=== PATIENT | male | born 1970 | race Caucasian/White ===

== ENCOUNTER 2023-01-23 08:20 | Outpatient (CLI) | payer BC, SELFPAY | END 2023-01-23 08:21 | disposition home or self-care (01) | PROVIDERS: PCP Internal Medicine; Visit Provider Internal Medicine | DX: Z00.00 Encounter for general adult medical examination without abnormal findings (principal); F10.10 Alcohol abuse, uncomplicated | CPT/HCPCS: 84450; 84460 ==

== ENCOUNTER 2024-02-18 08:45 | Outpatient (RCR) | payer BC, SELFPAY | END 2024-06-17 23:59 | disposition home or self-care (01) | PROVIDERS: PCP Internal Medicine; Visit Provider Family Medicine | DX: G56.22 Lesion of ulnar nerve, left upper limb (principal); M25.511 Pain in right shoulder; G89.29 Other chronic pain; Z74.09 Other reduced mobility; R29.898 Other symptoms and signs involving the musculoskeletal system; Z51.89 Encounter for other specified aftercare | CPT/HCPCS: 97110; 97161 ==

== ENCOUNTER 2024-03-22 08:59 | Outpatient (CLI) | payer BC, SELFPAY ==
--- OUTSIDE RECORDS SUMMARY | 2024-03-22 09:03 | XMS_ITS | Clinical Summary ---
Author Name Unknown Organization [facility] Address [place], [place] [address] Care Team Providers Care Service Sprinkler Helper Name Role Phone Pcp, No Primary Care Provider Unavailabl e Allergies No known active allergies Medications Medication Sig Dispensed Refills Start Date End Date Status celecoxib (CELEBREX) 200 mg capsuleIndications:U lnar neuropathy of left upper extremity Take 1 capsule by mouth 2 times daily with meals. 60 capsule 2 08/03/2018 Active gabapentin (NEURONTIN) 300 mg capsuleIndications:N euritis of left ulnar nerve Take 1 Capsule (300 mg) by mouth at bedtime. 30 Capsule 3 09/08/2023 Active Active Problems Problem Noted Date Diagnosed Date Family history of malignant neoplasm of gastrointestinal tract 04/24/2012 Overview: Colonoscopy 04/2012 normal repeat in 5 years Colonoscopy 05/2020 polyp, repeat in 5 years S/P repair of right rotator cuff 05/13/2011 Ankle Arthritis 06/20/2009 Encounters Date Type Department Care Team Description 02/20/2024 8:00 AM CDT Office Visit [facility] [address] [place] [address] Vernon Kamara MD Musculoskeletal Problem (Follow up right shoulder pain) 02/20/2024 Travel from Last 3 Months Immunizations Name Administration Dates Next Due HepA-HepB (Twinrix) 12/07/2015,10/18/2011 Influenza, IIV3 (Age 6-35 mos) 10/18/2011 Influenza, IIV4 09/10/2020,12/07/2015 Tdap 02/15/2011 Typhoid (injectable) 12/07/2015,10/18/2011 Yellow Fever 10/18/2011 Zoster (Shingrix-RZV, recombinant) 11/20/2018, Family History Medical History Relation Name Comments Arthritis Mother RA Relation Name Status Comments Mother Social History Tobacco Use Types Packs/Day Years Used Date Smoking Tobacco: Never Smokeless Tobacco: Never Tobacco Cessation:Counseling Given: Yes Alcohol Use Standard Drinks/Week Comments Yes 0 (1 standard drink = 0.6 oz pure alcohol) 1 drink with dinner 5 days per week PHQ-2 Answer Date Recorded PHQ-2 TOTAL SCORE 0 09/14/2020 Social Connections Answer Date Recorded Frequency of Communication with Friends and Fami ly Not on file 09/08/2023 Financial Resource Strain Answer Date R ecorded Difficulty of Paying Living Expenses Not on file 11/17/2021 Difficulty of Paying Living Expenses Not on file 11/17/2021 Sex and Gender Information Value Date Recorded Sex Assigned at Not on file Gender Identity Not on file Sexual Orientation Not on file Obstetrics History Last Filed Vital Signs Vital Sign Reading Time Taken Comments Blood Pressure 146/92 02/20/2024 8:05 AM CDT Pulse 76 02/20/2024 8:05 AM CDT Temperature 36.3 ??C (97.4 ??F) 02/20/2024 8:05 AM CD T Respiratory Rate - - Oxygen Saturation 96% 02/20/2024 8:05 AM CDT Inhaled Oxygen Concentration - - Weight 106.3 kg (234 lb 6.4 oz) 02/20/2024 8:05 AM CDT shoes on Height - - Body Mass Index - - Plan of Treatment Health Maintenance Due Date Last Done Comments HIV for age 15-65 02/09/1983 BMI (ht and wt on same day) for age 18+ 02/09/1986 Hepatitis C screening for age 18-79 02/09/1986 Lipids for age 45-75 02/09/2013 Tetanus booster 02/15/2021 02/15/2011 Depression screening for age 12+ 09/14/2021 09/14/2020, 09/14/2020 Influenza for age 50-64 07/18/2024 09/10/2020, 12/07 Colonoscopy through age 75 06/16/202506/16, 06/16/2020, 04/24/2012 Tdap Completed 02/15/2011 Zoster (shingles) series for age 50+ Completed 11/20/2018, 08/11/2018 COVID-19 vaccine series Completed 08/20/20, 04/05/2022, 10/31/2021, Additional history exists Pneumococcal series for age 6-64 Aged Out No longer eligible based on patient's age to complete this topic Procedures Procedure Name Priority Date/Time Associated Diagnosis Comments COLONOSCOPY 06/16/2020 8:41 AM CDT from Last 3 Months or Most Recently Relevant to Health Maintenance Results * COLONOSCOPY (06/16/2020 8:41 AM CDT) 06/16/2020 8:41 AM CDT Narrative Transcriptions Kevin Fernandez MD - 06/16/2020 9:34 AM CDT Patient Name: Edwardo Pittman Procedure Date: 06/16/2020 Gender: Male Date of : 1970 Admit Type: Outpatient Procedure: Colonoscopy Proceduralist: Kevin Fernandez MD , Katie Patrick RN (Nurse), Concepcion Pham (Nurse) Indications/Pre-Op Diagnosis: Screening for colorectal malignant neoplasm, Last colonoscopy: April 2012 Medications: Fentanyl 100 micrograms IV, Midazolam 2 mgIV, The level of sedation administered wasmoderate Procedure Description: The patient had risks, benefits and alternatives explained to andgave informed consent. The patient had a stable cardiopulmonary status and judged an adequate candidate for conscious sedation. The [id number] was passed through the anus and advanced tothe cecum, identified by appendiceal orifice and ileocecal valve. The colonoscopy was performed without difficulty. The patient toleratedthe procedure well. The quality of the bowel preparation was good. The ileocecal valve, appendiceal orifice, and rectum were photographed. Complications: No immediate complications. Estimated Blood Loss & Specimen: Estimated blood loss: none. Specimen collected - Yes and sent to Laboratory Findings: The perianal and digital rectal examinations were normal. A 4 mm polyp was found in the rectum. The polyp wassemi-pedunculated. The polyp was removed with a cold snare. Resection and retrieval were complete. The exam was otherwise without abnormality on direct and retroflexion views. Impressions/Post-Op Diagnosis: - One 4 mm polyp in the rectum, removed with a cold snare. Resectedand retrieved. - The examination was otherwise normal on direct and retroflexionviews. Recommendation: - Patient has a contact number available for emergencies. The signsand symptoms of potential delayed complications were discussed with the patient. Return to normal activities tomorrow. Written discharge instructions were provided to the patient. - Resume previous diet. - Continue present medications. - Await pathology results. - Repeat colonoscopy is recommended. The colonoscopy date will be determined after pathology results from today's exam become available for review. Moderate Sedation: Moderate (conscious) sedation was administered by the endoscopy nurse and supervised by the endoscopist. The following parameters were monitored: oxygen saturation, heart rate, respiratory rate, blood pressure, adequacy of pulmonary ventilation and reponse to care. [facility] refer [facility] medical record flowsheets and nursing notes for moderate sedation details. Total physician intraservice time was 18 minutes. Kevin Fernandez MD 06/16/2020 9:34:32 AM This report has been signed electronically. Note Initiated On: 06/16/2020 8:41 AM Procedure Code(s): --- Professional --- 59080, Colonoscopy, flexible; with removalof tumor(s), polyp(s), or other lesion(s) bysnare technique Diagnosis Code(s): --- Professional --- Z12.11, Encounter for screening formalignant neoplasm of colon K62.1, Rectal polyp CPT copyright 2019 [employer]. All rights reserved. The codes documented in this report are preliminary and upon government professor reviewmay be revised to meet current compliance requirements. Scope In: 9:11:36 AM Scope Withdrawal Time 0 hours 8 minutes 54 seconds Scope Out: 9:27:01 AM Kevin Fernandez MD PROCEDURE ORD from Last 3 Months or Most Recently Relevant to Health Maintenance Care Teams Service Sprinkler Helper Relationship Specialty Start Date End Date Pcp, No . PCP - General 01/10/11
== END 2024-03-22 09:00 | disposition home or self-care (01) ==
PROVIDERS: PCP Internal Medicine; Visit Provider Internal Medicine
DX: E66.9 Obesity, unspecified (principal); Z13.220 Encounter for screening for lipoid disorders; Z12.5 Encounter for screening for malignant neoplasm of prostate; Z13.1 Encounter for screening for diabetes mellitus
CPT/HCPCS: 80061; 82947; 84450; 84460; G0103

== ENCOUNTER 2025-07-08 07:42 | Outpatient (CLI) | payer BC, SELFPAY ==
--- NOTE | 2025-07-08 08:47 | P.ANES_ITS ---
Anesthesia Charges Start Date/Time Anesthesia Start Date: 07/08/25 Anesthesia Start Time: 08:18 Stop Date/Time Anesthesia Stop Date: 07/08/25 Anesthesia Stop Time: 08:45 Coding CPT Codes CPT Codes: DIAZ LWR INTST NDSC NOS - 86777 ([id number]) P2 - PATIENT W/MILD SYST DISEASE, QK - INSULATION MECHANIC 2-4 CNCRNT ANES PROC, QX - DISTRICT WIRE CHIEF SVC W/ MD MED DIRECTION
--- NOTE | 2025-07-08 08:47 | W.ANESCHARGE ---
Anesthesia Charges Start Date/Time Anesthesia Start Date: 07/08/25 Anesthesia Start Time: 08:18 Stop Date/Time Anesthesia Stop Date: 07/08/25 Anesthesia Stop Time: 08:45 Coding CPT Codes CPT Codes: DIAZ LWR INTST NDSC NOS - 21673 ([id number]) P2 - PATIENT W/MILD SYST DISEASE, QK - JOB PRINTER APPRENTICE 2-4 CNCRNT ANES PROC, QX - CERTIFIED RETINAL ANGIOGRAPHER SVC W/ MD MED DIRECTION
--- NOTE | 2025-07-08 08:56 | P.ANES_ITS ---
Anesthesia Charges Start Date/Time Anesthesia Start Date: 07/08/25 Anesthesia Start Time: 08:18 Stop Date/Time Anesthesia Stop Date: 07/08/25 Anesthesia Stop Time: 08:45 Coding CPT Codes CPT Codes: ANES LWR INTST NDSC NOS - 95918 ([id number]) QX - GENERAL INTERNAL MEDICINE PHYSICIAN SVC W/ MD MED DIRECTION, QK - CHUTE MAN 2-4 CNCRNT ANES PROC, P2 - PATIENT W/MILD SYST DISEASE
--- NOTE | 2025-07-08 08:56 | W.ANESCHARGE ---
Anesthesia Charges Start Date/Time Anesthesia Start Date: 07/08/25 Anesthesia Start Time: 08:18 Stop Date/Time Anesthesia Stop Date: 07/08/25 Anesthesia Stop Time: 08:45 Coding CPT Codes CPT Codes: ANES LWR INTST NDSC NOS - 10210 ([id number]) QX - SOUS CHEF KITCHEN MANAGER SVC W/ MD MED DIRECTION, QK - CERTIFIED MEDICAL CODER 2-4 CNCRNT ANES PROC, P2 - PATIENT W/MILD SYST DISEASE
== END 2025-07-08 07:43 | disposition home or self-care (01) ==
LOC: OP CLINIC 07:42
PROVIDERS: PCP Internal Medicine; Visit Provider Internal Medicine Gastroenterology
DX: Z12.11 Encounter for screening for malignant neoplasm of colon (principal); Z86.0101 Personal history of adenomatous and serrated colon polyps; D12.8 Benign neoplasm of rectum
CPT/HCPCS: 00811; 00812; 45385; 88305; J2704

== ENCOUNTER 2025-07-12 13:28 | Outpatient (CLI) | payer BC, SELFPAY ==
--- NOTE | 2025-07-12 13:45 | MR_ITS ---
[address] [address] Phone:?[phone] Fax:?[phone] Referring Physician Information: Luis Dos Santos M.D. [address] [place] [facility] [address] Phone:?[phone] Fax:?[phone] Patient:Heike Pittman D.O.B:?1970 Sex:?Male Phone:?[phone] [facility] MRN:?[id number] Exam Date:?07/12/2025 EXAM: MRI of the LEFT KNEE, without contrast CLINICAL INFORMATION: Male, 55 years old, with left knee pain after fall injury INDICATION: Evaluate for meniscus tear PRIOR SURGERY: History of prior surgery. PLAIN FILMS: None available. COMPARISONS: Knee MRI 05/11/2023. TECHNICAL INFORMATION: Using a 1.5T MR scanner and a localizing surface coil: sagittals: PD, PDFS coronals: PD, T2FS axials: PD, PDFS SEDATION: None CONTRAST: None FINDINGS: Knee joint: Effusion: Large sized left knee effusion with synovitis. Popliteal cyst: Small popliteal cyst. Fluid along the medial head of the gastrocnemius suggesting rupture and partial leaking fluid. Loose bodies: None. Subcutaneous and extra-articular soft tissues: Unremarkable. Ligaments: ACL: Intact ACL anteromedial and posterolateral bundles, without sprain or tear. PCL: Intact PCL, without acute or chronic injury. MCL: Intact MCL superficial and deep layers, without injury. LCL: Intact LCL, without injury. Posterolateral corner: No posterolateral corner soft tissue injury. Popliteus, biceps femoris, iliotibial band, popliteofibular ligament and lateral gastrocnemius are intact. Posteromedial corner: Advanced atrophy is noted of the semimembranosus muscle belly, of uncertain clinical significance. Pes anserine tendons and posterior oblique ligament are without injury, tendinopathy or bursitis. Extensor mechanism: Patellar tendon: Intact, without tendinopathy. Quadriceps tendon: The quadriceps tendon is abnormal in appearance. There is highly attenuated appearance of the central visualized tendon with susceptibility and thickening of the deep surface fibers approximately 5.2 cm from the patellar attachment (sagittal series 5 image 18). The vastus medialis, lateralis, and intermedius contributions, as well as the rectus femoris tendon appear intact on the tendon. There is poorly defined appearance of osseous structures within the lateral aspect of the tendon proximal to the patellar attachment (coronal series 7 images 40-42). Retinacula: Medial and lateral retinacula are intact. Fat pads: Unremarkable infrapatellar Hoffa's, quadriceps and prefemoral fat pads. Medial compartment: Medial meniscus: High-grade full-thickness or near full-thickness radial tearing at the level of the posterior root medial meniscus. 3 mm peripheral meniscal extrusion at the level of the body. There is shallow undersurface tearing and fraying involving the inner third of the posterior horn medial meniscus (sagittal series 6 image 10). Medial femoral condyle: Relatively sharply marginated full-thickness chondral loss along the central and posterior weightbearing medial femoral condyle measures up to 2.0 x 3.0 cm. Medial tibial plateau: Grade 2 chondral thinning of the medial tibial plateau articular cartilage. Lateral compartment: Lateral meniscus: No articular surface, meniscosynovial junction or root tear. No displacement, extrusion or parameniscal cyst. Lateral femoral condyle: Grade III chondromalacia along the central and posterior weightbearing lateral femoral condyle measuring approximately 1.5 x 2.8 cm. Lateral tibial plateau: Small region of grade III chondromalacia along the posterior lateral tibial plateau measures 1.0 cm. Patellofemoral joint: Patella: Grade IV chondromalacia along the superior margin of the lateral patellar facet measuring up to 2.0 x 1.0 cm. Trochlea: Grade IV chondromalacia of the lateral trochlea measuring 1.6 x 2.2 cm. Underlying cystic change. Proximal tibiofibular joint: Unremarkable, without evidence of ligament sprain injury, joint effusion or adjacent marrow edema. Bones: Postoperative changes of the patella consistent with history of prior superolateral patellar fracture. Mild deformity in this region without persistent marrow edema. IMPRESSION: 1. Postoperative appearance of the superolateral patella with mild deformity in this region, consistent with history of prior fracturing. 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 2. Attenuated appearance of the central quadriceps tendon is favored to reflect postoperative changes. Region of susceptibility artifact osseous bodies associated with the proximally located central tendon may reflect postoperative changes versus partial deep surface rupture and retraction; correlate with surgical history. No evidence for acute full-thickness tearing. 3. Full-thickness or near full-thickness radial tearing of the posterior horn/root medial meniscus. Superimposed shallow undersurface fraying and tearing along the body segment. 3 mm peripheral meniscal extrusion. 4. Large sharply marginated full-thickness chondral defect involving the central and posterior weightbearing medial femoral condyle measuring 2.0 x 3.0 cm. Mild chondral thinning of the central medial tibial plateau. 5. Moderate size region of grade III chondromalacia along the central and posterior weightbearing lateral femoral condyle measuring 1.5 x 2.8 cm. Small region of grade III chondromalacia along the posterior lateral tibial plateau. 6. Patellofemoral joint degenerative change with grade IV chondromalacia of the superior lateral patellar facet and lateral trochlea. 7. No cruciate or collateral ligament sprain/tear. 8. Large knee joint effusion. Small popliteal cyst with evidence of rupture and mild leaking fluid. KME Electronically signed on 07/13/2025 3:18:00 PM by Lanie Harvey M.D.
== END 2025-07-12 13:29 | disposition home or self-care (01) ==
LOC: MRI 13:28
PROVIDERS: PCP Internal Medicine; Visit Provider Orthopaedic Surgery
DX: M25.562 Pain in left knee (principal); M22.42 Chondromalacia patellae, left knee; S83.242A Other tear of medial meniscus, current injury, left knee, initial encounter; M25.461 Effusion, right knee
CPT/HCPCS: 73721

== ENCOUNTER 2025-09-08 06:45 | Day surgery (SDC) | payer BC, SELFPAY ==
[2025-09-08] VITALS (14 sets, daily range): BP systolic 128–161; BP diastolic 82–125; PULSE 56–86; RESP 16; TEMP 35.7–37; O2SAT 96–100; BMI 31.3
[2025-09-08] MEDS: LACTATED RINGERS 1000 ML 1,000 ML 100 ML IV (07:20)
[2025-09-08] MEDS: SODIUM CHLORIDE 0.9 % (FLUSH) 10 ML SYRINGE IVF (07:20)
[2025-09-08] MEDS: CELECOXIB 200 MG CAPSULE PO (07:46)
[2025-09-08] MEDS: ACETAMINOPHEN 500 MG TABLET 1000 MG PO (07:46)
[2025-09-08] MEDS: OXYCODONE (CR) 10 MG TAB.ER.12H PO (07:50)
--- NOTE | 2025-09-08 10:21 | SUR.OPER ---
PATIENT QUESTIONS ANSWERED SATISFACTORILY PREOPERATIVELY.? PATIENT BROUGHT TO OR #3 PER CART.? Patient positioned supine on OR #3 bed.? The perioperative?team supported arms bilaterally on arm boards.? Final approval of positioning by surgeon.? CONTINUOUS IRRIGATION OF THE RIGHT KNEE DURING THE PROCEDURE WITH NACL.
[2025-09-08] MEDS: LACTATED RINGERS 500 ML 500 ML 125 ML IV (10:39)
--- NOTE | 2025-09-08 11:31 | PM.ORPRC ---
Procedure Note Date of procedure: 09/08/25 Procedure: PREOPERATIVE DIAGNOSIS: Left knee medial meniscus root tear POSTOPERATIVE DIAGNOSIS: Left knee medial meniscus root tear NAME OF OPERATION: Left knee arthroscopic medial meniscus root repair, microfracture of the notch SURGEON: Luis Dos Santos MD BED SPRING MAKER: Alina Smith PA-C ANESTHESIA: Spinal ESTIMATED BLOOD LOSS: 0 mL COMPLICATIONS: None SPECIMENS: None DRAINS: None PREOPERATIVE ANTIBIOTICS: Ancef 2 g INDICATIONS: The patient is a 55-year-old with a history of left knee pain. MRI scan is consistent with a medial meniscus root tear. Despite appropriate nonoperative management, including activity modification, antiinflammatories, agiq-ldd-diwnenq pain medication, bracing, physical therapy, and injections they continue to have pain and disability. Operative intervention was offered. The risks, benefits and expected outcomes were discussed in detail. These included but were not limited to: Infection, bleeding, injury to blood vessel or nerve, venous thromboembolism. All questions were answered to their satisfaction. PROCEDURE: Spinal anesthesia was administered. The patient was placed supine on the operating room table. The left lower extremity was prepped and draped in the usual sterile fashion. The limb was exsanguinated with the Kevin bandage. The pneumatic tourniquet was inflated to 225 mmHg. A standard anterolateral portal was established. The arthroscope was introduced. The working portal was established anteromedially. Diagnostic arthroscopy was performed with findings as follows: The suprapatellar pouch shows FiberWire suture imbedded within the soft tissues and proximal pole of the patella, consistent with his history of a quads tendon repair. Articular surface on the patella shows diffuse grade 2 change. Articular surface on the trochlea shows diffuse grade 3 change. The medial gutter is normal. The medial compartment shows a large focal area of grade 3 change on the central, weight-bearing portion of the medial femoral condyle, diffuse grade 2 change on the medial tibial plateau. The medial meniscus has a radial tear of the posterior horn from the leading edge to the capsule (root tear). The notch shows the ACL to be intact. The lateral compartment shows a small patch of grade 3 change on the lateral femoral condyle, normal articular cartilage on the lateral tibial plateau. The lateral meniscus has a tiny radial tear of the leading edge of the posterior horn. The lateral gutter is normal. The undersurface of the posterior horn of the medial meniscus was debrided with the shaver. The stump of the root, still attached to the tibia was debrided. Unstable chondral flaps on the medial femoral condyle and lateral femoral condyle were debrided with the shaver. FiberWire in the suprapatellar pouch was debrided with the pituitary rongeur and the shaver. We elected to proceed with medial meniscus root repair. The footprint was debrided with the shaver and the meniscal rasp. The tibial drill guide was used over the footprint of the root. The guide pin was drilled into the center of the footprint. The stylus was removed and a Nitinol wire was shuttled through it, out the anteromedial portal. The guide pin was removed from the tibia. The Nitinol wire was used to shuttle the sutures on the Arthrex Sutureloc through the tibia and out the anteromedial portal. The anchor was set, just under the subchondral bone of the footprint. The knee scorpion was used to pass the sutures through posterior horn of medial meniscus. The sutures were then shuttled through the anchor and provisionally tensioned. The knee was cycled several times and the sutures were finally tensioned. This provides an excellent repair of the posterior tibial attachment of the medial meniscus to its anatomic footprint. The suture lock was cut off over the face of the tibia. The power pick was used to microfracture the notch both medially and laterally. Arthroscopic instruments were removed, the portal sites were Steri-Stripped closed, the incision over the tibia was closed with 3-0 Vicryl and 4-0 Monocryl. A dry dressing was applied, the tourniquet was released. Sponge and needle counts were correct x 2. The patient tolerated the procedure well. There were no apparent complications. They were carefully transferred to the hospital bed and taken to the postanesthesia care unit in satisfactory condition. PLAN: The patient will be discharged to home. They will be protected weightbearing on the lower extremity for 6 weeks postoperatively. Range of motion will be allowed from 0-90 degrees x 2 weeks then unrestricted range of motion. They will follow up in 2 weeks for a wound check.
--- NOTE | 2025-09-08 11:36 | W.PM.NB ---
Nerve Block Nerve Block Time Seen by Provider: 11:30 Date Seen: 09/08/25 Type of block requested by surgeon for post-operative analgesia: geniculars Side: left Time out performed: Yes Verification of patient name: Yes Verification of date of : Yes Name of person performing procedure: Ismael Brambila Continuous monitoring Was continuous monitoring of O2 sat, B/P, facilities management executive, recorded every 15 minutes?: Yes Procedure Medications given in 5ml increments after negative aspiration: Marcaine %: 0.5 mL: 12 Needle gauge: 25 Patient tolerated procedure well: Yes Block Charges Block Charge (with Pro Fee): Genicular Nerve Block
--- NOTE | 2025-09-08 11:44 | P.ANES_ITS ---
Anesthesia Charges Start Date/Time Anesthesia Start Date: 09/08/25 Anesthesia Start Time: 09:40 Stop Date/Time Anesthesia Stop Date: 09/08/25 Anesthesia Stop Time: 11:45 Coding CPT Codes CPT Codes: ANESTH KNEE JOINT SURGERY - 48080 ([id number]) P2 - PATIENT W/MILD SYST DISEASE, QK - PEST CONTROL APPLICATOR 2-4 CNCRNT ANES PROC
--- NOTE | 2025-09-08 11:44 | W.ANESCHARGE ---
Anesthesia Charges Start Date/Time Anesthesia Start Date: 09/08/25 Anesthesia Start Time: 09:40 Stop Date/Time Anesthesia Stop Date: 09/08/25 Anesthesia Stop Time: 11:45 Coding CPT Codes CPT Codes: ANESTH KNEE JOINT SURGERY - 21419 ([id number]) P2 - PATIENT W/MILD SYST DISEASE, QK - SUPERVISOR ERECTION SHOP 2-4 CNCRNT ANES PROC
--- NOTE | 2025-09-08 12:08 | P.ANES_ITS ---
Anesthesia Charges Start Date/Time Anesthesia Start Date: 09/08/25 Anesthesia Start Time: 09:40 Stop Date/Time Anesthesia Stop Date: 09/08/25 Anesthesia Stop Time: 11:45 Coding CPT Codes CPT Codes: ANESTH KNEE JOINT SURGERY - 98696 ([id number]) QK - PARKING WORKER 2-4 CNCRNT ANES PROC, QX - DIRECTOR HRIS SVC W/ MD MED DIRECTION, P2 - PATIENT W/MILD SYST DISEASE
--- NOTE | 2025-09-08 12:08 | W.ANESCHARGE ---
Anesthesia Charges Start Date/Time Anesthesia Start Date: 09/08/25 Anesthesia Start Time: 09:40 Stop Date/Time Anesthesia Stop Date: 09/08/25 Anesthesia Stop Time: 11:45 Coding CPT Codes CPT Codes: ANESTH KNEE JOINT SURGERY - 84895 ([id number]) QK - RANGE ECOLOGIST 2-4 CNCRNT ANES PROC, QX - LINE SERVICE PERSON SVC W/ MD MED DIRECTION, P2 - PATIENT W/MILD SYST DISEASE
--- NOTE | 2025-09-08 13:30 | SUR.PHASEII ---
1310: Patient ambulatory with walker and gait belt to restroom. Patient voided. Returned to recliner. Operative leg elevated and ice pack in place.
--- NOTE | 2025-09-08 13:31 | SUR.PHASEII ---
1330: PT Scar in room with patient. Crutches supplied.
== END 2025-09-08 14:01 | disposition home or self-care (01) ==
LOC: OR 06:46
PROVIDERS: PCP Internal Medicine; Visit Provider Orthopaedic Surgery
PROC: (CPT 29882; principal; 2025-09-08 09:00)
DX: S83.232A Complex tear of medial meniscus, current injury, left knee, initial encounter (principal); M17.12 Unilateral primary osteoarthritis, left knee; G89.18 Other acute postprocedural pain; E66.9 Obesity, unspecified; Z68.31 Body mass index [BMI] 31.0-31.9, adult
CPT/HCPCS: 29882; 29879; 01400; 64454; 97161; A9270; C1713; J0665; J0690; J1100; J2250; J2371; J2405; J2704; J3010; J3490; J7120